=== PATIENT | male | born 1960 | race Caucasian/White ===

== ENCOUNTER 2021-10-30 08:37 | Outpatient (CLI) | payer BC | END 2021-10-30 08:38 | disposition home or self-care (01) | LOC: CSHMRI 08:37 | PROVIDERS: ATTEND Internal Medicine Rheumatology | DX: M75.111 Incomplete rotator cuff tear or rupture of right shoulder, not specified as traumatic (principal); M75.112 Incomplete rotator cuff tear or rupture of left shoulder, not specified as traumatic; M67.90 Unspecified disorder of synovium and tendon, unspecified site; M75.121 Complete rotator cuff tear or rupture of right shoulder, not specified as traumatic; M25.811 Other specified joint disorders, right shoulder; M67.911 Unspecified disorder of synovium and tendon, right shoulder; S43.492A Other sprain of left shoulder joint, initial encounter; M25.812 Other specified joint disorders, left shoulder ==